=== PATIENT | male | born 1945 | race Hispanic/Latino ===

== ENCOUNTER → 2020-06-22 | Outpatient (CLI) | payer MEDICARE, OTHER ==
--- NOTE | 2020-06-22 10:10 | REP ---
INDICATION: RT LEG PAIN SWELLING ? DVT. COMPARISON: None. TECHNIQUE: Right lower extremity duplex venous scanning. FINDINGS: The deep veins are anechoic and fully compressible from the groin to the popliteal fossa in the right lower extremity. Color flow imaging is homogeneous. Spectral Doppler interrogation demonstrates intact respiratory variation in flow and normal manual augmentation of flow. There is no evidence of deep vein thrombosis. IMPRESSION: Negative right lower extremity duplex venous ultrasound. No evidence of deep vein thrombosis. <Electronically signed by Agustin Friedman > 06/22/20 1001
== END ==
LOC: M RAD 09:31
PROVIDERS: ATTEND Physical Medicine & Rehabilitation
DX: M79.604 Pain in right leg (principal)

== ENCOUNTER → 2020-06-25 | Outpatient (CLI) | payer MEDICARE, OTHER ==
[2020-06-25 09:47] LABS: PLATELET COUNT, AUTOMATED 195 10^3/uL (150-450)
[2020-06-25 09:58] LABS: INR 0.99; PROTHROMBIN TIME 13.3 SECONDS (12.5-14.3)
[2020-06-25 09:59] LABS: PARTIAL THROMBOPLASTIN TIME 28.1 SECONDS (24.2-38.5)
[2020-06-25 10:03] LABS: COLLAGEN EPINEPHRINE 143 SECONDS (74-162)
== END ==
LOC: M LAB 09:15
PROVIDERS: ATTEND Physical Medicine & Rehabilitation
DX: M48.061 Spinal stenosis, lumbar region without neurogenic claudication (principal)

== ENCOUNTER → 2020-08-03 | Outpatient (CLI) | payer MEDICARE, OTHER ==
--- NOTE | 2020-08-03 15:51 | REP ---
INDICATION: PVD COMPARISON: None. TECHNIQUE: Real time cruz scale and color Doppler evaluation of the bilateral lower extremity arterial vasculature using linear high frequency transducer. FINDINGS: Cruz scale and color images demonstrate mild to moderate amounts of partially calcified atheromatous plaquing with areas of minimal narrowing noted bilaterally with primarily biphasic arterial wave patterns. Right lower extremity demonstrates 1.7:1 stenosis at the tibioperoneal trunk and increased velocity through the distal posterior tibial artery without focal area of stenosis identified. Left lower extremity demonstrates 2.3:1 stenosis at the level of the proximal posterior tibial artery. PEAK SYSTOLIC VELOCITIES (CM/SEC) Common femoral artery: Right 96.1; Left 117.0 Profunda femoris: Right 101.9; Left 103.0 SFA (proximal): Right 104.0; Left 107.0 SFA (mid): Right 127.0; Left 118.0 SFA (distal): Right 103.0; Left 120.0 Popliteal artery: Right 99.6; Left 114.0 JANE (prox.): Right 133.0; Left 93.2 Tibioperoneal trunk: Right 86.9/149; Left 66.7 [employer] HE[employer]GER (prox.): Right 42.3; Left 157.0 PL[employer] HE[employer] MANAGER (distal): Right 80.0; Left 55.3 JANE (distal): Right 118.0; Left 77.1 IMPRESSION: Atheromatous changes noted bilaterally including mild areas of stenosis in the right tibioperoneal trunk and left proximal posterior tibial artery. <Electronically signed by Raul Geller > 08/03/20 [id number]
== END ==
LOC: M RAD 12:55
PROVIDERS: ATTEND Podiatrist Foot & Ankle Surgery
DX: I73.9 Peripheral vascular disease, unspecified (principal)

== ENCOUNTER → 2020-11-01 | Outpatient (REF) | payer MEDICARE, OTHER ==
[2020-11-01 13:40] LABS: APPEARANCE, URINE CLEAR (CLEAR); BACTERIA, URINE AUTO NEGATIVE (NEGATIVE); BILIRUBIN, URINE AUTO NEGATIVE (NEGATIVE); BLOOD, URINE BLOOD NEGATIVE (NEGATIVE); CALCIUM OXALATE CRYSTALS SMALL; COLOR, URINE YELLOW (YELLOW); GLUCOSE, URINE (UA) AUTO NEGATIVE (NEGATIVE); KETONE, URINE AUTO NEGATIVE (NEGATIVE); LEUKOCYTE ESTERASE, URINE AUTO NEGATIVE (NEGATIVE); MUCUS, URINE SMALL (NEGATIVE); NITRITE, URINE AUTO NEGATIVE (NEGATIVE); PROTEIN, URINE AUTO 1+ mg/dL (NEGATIVE); RBC, URINE AUTO 1 /HPF (0-3); SPECIFIC GRAVITY URINE AUTO 1.016 (1.002-1.035); SQUAMOUS EPITHELIAL CELL UR AU 0 /HPF (0-6); WBC, URINE AUTO 1 /HPF (0-3)
== END ==
LOC: M SMT 13:15
PROVIDERS: ATTEND Nurse Practitioner Family
DX: R35.1 Nocturia (principal)
CPT/HCPCS: 51798; 81001; 87086; G0463

== ENCOUNTER → 2020-12-21 | Outpatient (CLI) | payer MEDICARE, OTHER ==
--- NOTE | 2020-12-23 11:46 | ECHO ---
ECHOCARDIOGRAM DATE OF PROCEDURE: 12/21/2020 Age: 75 Gender: Male Height: 68 inches Weight: 180 pounds Body surface area: 1.95 m2 REFERRING PHYSICIAN: Robyn Alonzo D.O. INDICATION: Edema. MEASUREMENTS: 2D Measurements: RV - 3.6 cm LV - 4.8 cm Septum 1.1 cm Posterior wall 1.1 cm Aortic root 3.3 cm LA - 4.0 cm LVEF 65% Doppler Measurements: AV - 1.6 m/sec LVOT - 0.97 m/sec LVOT diameter 2.0 cm MV - E 94, A 85, EA ratio 1.1 Early mitral deceleration time 230 msec E prime medial 9.3 A prime medial 14.8 E prime lateral 11 PV - 1.18 m/sec Pulmonary artery acceleration time 106 msec PASP 34 mmHg IVC - 1.6 cm COMMENTS: Normal sinus rhythm without intraventricular conduction disturbance. 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 M-mode and 2-dimensional echocardiography was performed with pulse, continuous wave, color flow and tissue Doppler studies. Normal left ventricular size, wall thickness and wall motion. Left atrial size upper limits of normal, but currently normal Doppler assessment of left ventricular (LV) diastolic function and estimated mean left atrial pressure. Normal right heart chamber sizes and wall motion with single Doppler sign of, perhaps, mild pulmonary hypertension. Normal inferior vena cava (IVC) size and collapse against an elevated central venous pressure. Normal aortic dimensions. Three equal size aortic cusps of normal thickness and separation. No functional abnormality. Normal appearing mitral valvular apparatus and leaflet excursion with no posterior systolic buckling and only trace mitral insufficiency. Normal appearing tricuspid valve with no more than trace insufficiency. No apparent intraventricular cardiac mass or pericardial effusion.
== END ==
LOC: M CARPUL 07:30
PROVIDERS: ATTEND Student in an Organized Health Care Education/Training Program
DX: R60.9 Edema, unspecified (principal)

== ENCOUNTER → 2020-12-27 | Outpatient (CLI) | payer MEDICARE, OTHER ==
--- NOTE | 2020-12-28 16:50 | REPVR ---
PROCEDURE INFORMATION: Exam: MR Lumbar Spine Without Contrast Exam date and time: 12/27/2020 1:43 PM Age: 75 years old Clinical indication: Low back pain; Additional info: Lbp ? stenosis vs hnp TECHNIQUE: Imaging protocol: Multiplanar magnetic resonance images of the lumbar spine without intravenous contrast. COMPARISON: No relevant prior studies available. FINDINGS: Vertebrae: A mild levoscoliotic curvature is partially visualized on the briar cutter sequence. Alignment is otherwise maintained. Vertebral body heights are intact. No pars defect is identified. Spinal cord: The conus is unremarkable in appearance, with its tip at the T12 level. Multilevel findings: There are varying degrees of disc desiccation indicating intervertebral disc degeneration. There also variable degenerative endplate changes. A 1.3 cm hemangioma is present in the L3 vertebral body. L1-L2: Very small bulge leading to very mild bilateral neural foraminal narrowing without significant spinal stenosis. L2-L3: Disc osteophyte complex combining with facet arthrosis to lead to moderate bilateral neural foraminal narrowing with mild bilateral lateral recess narrowing, without significant central canal stenosis. L3-L4: Disc osteophyte complex combining with facet arthrosis and ligamentum flavum hypertrophy to lead to severe right and moderate to severe left neural foraminal narrowing with severe bilateral lateral recess narrowing and moderate to severe central canal stenosis. L4-L5: Disc osteophyte complex combining with facet arthrosis and ligamentum flavum hypertrophy to lead to moderate to severe bilateral neural foraminal narrowing with severe narrowing of the bilateral lateral recesses and mild to moderate central canal stenosis. L5-S1: Disc osteophyte complex combining with facet arthrosis to lead to mild bilateral neural foraminal narrowing without significant spinal stenosis. Soft tissues: Unremarkable. 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 COMMENTS: If surgery is considered, recommend level confirmation. Electronically signed by: Greg Lee On 12/28/2020 16:50:11 PM
== END ==
LOC: M PLAIMG 12:59
PROVIDERS: ATTEND Physician Assistant
DX: M54.5 Low back pain (principal)

== ENCOUNTER 2021-08-16 09:57 | Emergency (ER) | payer MEDICARE, OTHER ==
[~2021-08-16] VITALS: Ht 170.2 cm; Wt 75.8 kg
[2021-08-16] MEDS ORDERED: NS 500 ML IV ONE (10:40)
[2021-08-16] MEDS ORDERED: ONDANSETRON 4MG/2ML VIAL IV ONE (10:40)
[2021-08-16 11:02] LABS: BASO % 0.2 % (0.0-1.0); EOS % 0.1 % (0.0-3.0); HEMATOCRIT 44.7 % (42.0-52.0); HEMOGLOBIN 15.8 g/dl (13.5-17.5); LYMPH # 1.7 10^3/uL (1.5-5.0); LYMPH % 17.1 % (24.0-44.0); MEAN CORPUSCULAR HEMOGLOBIN 31.2 pg (27.0-33.0); MEAN CORPUSCULAR HGB CONC 35.3 g/dl (32.0-36.5); MEAN CORPUSCULAR VOLUME 88.2 fl (80.0-96.0); MONO # 0.7 10^3/uL (0.0-0.8); MONO % 6.5 % (2.0-8.0); NEUTROPHILS # 7.6 10^3/uL (1.5-8.5); NEUTROPHILS % 75.7 % (36.0-66.0); PLATELET COUNT, AUTOMATED 218 10^3/uL (150-450); RED BLOOD COUNT 5.07 10^6/uL (4.30-6.10); WHITE BLOOD COUNT 10.1 10^3/uL (4.0-10.0)
[2021-08-16 11:09] LABS: ALBUMIN 4.3 GM/DL (3.2-5.2); BILIRUBIN,DIRECT 0.3 MG/DL (0.0-0.2); BILIRUBIN,TOTAL 1.2 MG/DL (0.2-1.0); CALCIUM LEVEL 9.3 MG/DL (8.8-10.2); CREATININE FOR GFR 1.8 MG/DL (0.70-1.30); MB/CK RELATIVE INDEX 1.38 (< OR =4); POTASSIUM SERUM 3.5 MEQ/L (3.5-5.1); TOTAL PROTEIN 8.6 GM/DL (6.4-8.2)
[2021-08-16] MEDS ORDERED: ISOVUE-370 76% 100ML VIAL As Ordered ONE (11:17)
[2021-08-16] MEDS ORDERED: NS 1,770 ML in IV 1 EA IV ONE (11:50)
[2021-08-16] MEDS ORDERED: cefTRIAXone SOD 2 GM in D5W MINI-BAG PLUS 50 ML IV ONE (11:50)
[2021-08-16 13:02] LABS: CK-MB VALUE MASS 1.3 NG/ML (<3.6); MB/CK RELATIVE INDEX 0.91 (< OR =4)
[2021-08-16 16:03] LABS: CALCIUM LEVEL 7.9 MG/DL (8.8-10.2); CREATININE FOR GFR 1.37 MG/DL (0.70-1.30); GLOMERULAR FILTRATION RATE 53.5 (>42)
[2021-08-16 16:15] VITALS: BP 183/89
[2021-08-16] MEDS ORDERED: ONDA4TAB6 PO (16:17)
== END 2021-08-16 17:05 | disposition home or self-care (01) ==
LOC: M ED 09:57
DX: K52.9 Noninfective gastroenteritis and colitis, unspecified (principal); R91.1 Solitary pulmonary nodule; I25.10 Atherosclerotic heart disease of native coronary artery without angina pectoris; I10 Essential (primary) hypertension; G47.33 Obstructive sleep apnea (adult) (pediatric); N28.1 Cyst of kidney, acquired
CPT/HCPCS: 71275; 74177; 80048; 80076; 81001; 82550; 82553; 83605; 83690; 84484; 85025; 87040; 87798; 93005; 93041; 96361; 96365; 96366; 96375; 99285; J0696; J2405; Q9967

== ENCOUNTER → 2021-08-28 | Outpatient (REF) | payer MEDICARE, OTHER ==
[~2021-08-28] MED LIST: ONDA4TAB6 PO
== END ==
LOC: M LAB REF 10:55
PROVIDERS: ATTEND Internal Medicine
DX: A08.0 Rotaviral enteritis (principal)

== ENCOUNTER 2021-09-30 13:19 | Emergency (ER) | payer MEDICARE, OTHER ==
[~2021-09-30] VITALS: Ht 170.2 cm; Wt 82.6 kg
[2021-09-30] MEDS ORDERED: ISOVUE-370 76% 100ML VIAL As Ordered ONE (17:43)
[2021-09-30 17:53] LABS: BASO % 0.3 % (0.0-1.0); EOS # 0.2 10^3/uL (0.0-0.5); EOS % 2.3 % (0.0-3.0); HEMATOCRIT 37.2 % (42.0-52.0); HEMOGLOBIN 12.3 g/dl (13.5-17.5); LYMPH # 4.7 10^3/uL (1.5-5.0); LYMPH % 49.8 % (24.0-44.0); MEAN CORPUSCULAR HEMOGLOBIN 31.1 pg (27.0-33.0); MEAN CORPUSCULAR HGB CONC 33.1 g/dl (32.0-36.5); MEAN CORPUSCULAR VOLUME 94.2 fl (80.0-96.0); MONO # 0.7 10^3/uL (0.0-0.8); MONO % 7.8 % (2.0-8.0); NEUTROPHILS # 3.8 10^3/uL (1.5-8.5); NEUTROPHILS % 39.6 % (36.0-66.0); PLATELET COUNT, AUTOMATED 174 10^3/uL (150-450); RED BLOOD COUNT 3.95 10^6/uL (4.30-6.10); WHITE BLOOD COUNT 9.5 10^3/uL (4.0-10.0)
[2021-09-30 18:13] LABS: ALBUMIN 3.6 GM/DL (3.2-5.2); ALT/SGPT 26 U/L (12-78); BILIRUBIN,DIRECT 0.2 MG/DL (0.0-0.2); BILIRUBIN,TOTAL 0.6 MG/DL (0.2-1.0); C REACTIVE PROTEIN QUANTITATIV < 0.30 MG/DL (0.00-0.30); LIPASE 103 U/L (73-393); TOTAL PROTEIN 7.3 GM/DL (6.4-8.2)
[2021-09-30 18:38] LABS: ERYTHROCYTE SEDIMENTATION RATE 35 mm/hr (0-20)
[2021-09-30 19:56] VITALS: BP 192/85
== END 2021-09-30 19:57 | disposition home or self-care (01) ==
LOC: M ED 13:19
DX: K21.9 Gastro-esophageal reflux disease without esophagitis (principal); R09.89 Other specified symptoms and signs involving the circulatory and respiratory systems; M43.02 Spondylolysis, cervical region; G89.29 Other chronic pain; M54.9 Dorsalgia, unspecified; I10 Essential (primary) hypertension; E78.5 Hyperlipidemia, unspecified; Z86.73 Personal history of transient ischemic attack (TIA), and cerebral infarction without residual deficits; Z79.899 Other long term (current) drug therapy
CPT/HCPCS: 36415; 70360; 70491; 80047; 80076; 83690; 85025; 85652; 86140; 99283; Q9967

== ENCOUNTER → 2021-10-04 | Outpatient (CLI) | payer MEDICARE, OTHER ==
[~2021-10-04] MED LIST changes: +ASPI81CH33 PO; +CYCL-707 PO; +LOSA25TA13 PO; +NORV5TAB PO; +TRAM50TA2 PO; +TRAZ-252 PO
== END ==
LOC: M PLAIMG 12:10
PROVIDERS: ATTEND Family Medicine
DX: M54.16 Radiculopathy, lumbar region (principal)

== ENCOUNTER 2021-10-05 15:39 | Emergency (ER) | payer MEDICARE, OTHER ==
[~2021-10-05] VITALS: Ht 170.2 cm; Wt 75.0 kg
[~2021-10-05 15:39] MED LIST changes: -ASPI81CH33 PO; -CYCL-707 PO; -LOSA25TA13 PO; -NORV5TAB PO; -TRAM50TA2 PO; -TRAZ-252 PO
[2021-10-05] MEDS ORDERED: ASPI81CH33 PO (15:47)
[2021-10-05] MEDS ORDERED: TRAM50TA2 PO (15:47)
[2021-10-05] MEDS ORDERED: TRAZ-252 PO (15:47)
[2021-10-05] MEDS ORDERED: NORV5TAB PO (15:47)
[2021-10-05] MEDS ORDERED: LOSA25TA13 PO (15:47)
[2021-10-05] MEDS ORDERED: MORPHINE 2 MG/ML 1ML VIAL IV ONE ×2 (17:05→21:20)
[2021-10-05] MEDS ORDERED: ONDANSETRON 4MG/2ML VIAL IV ONE (17:05)
[2021-10-05 17:46] LABS: HEMATOCRIT 37.6 % (42.0-52.0); HEMOGLOBIN 12.8 g/dl (13.5-17.5); MEAN CORPUSCULAR HEMOGLOBIN 31.6 pg (27.0-33.0); MEAN CORPUSCULAR VOLUME 92.8 fl (80.0-96.0); PLATELET COUNT, AUTOMATED 198 10^3/uL (150-450); RED BLOOD COUNT 4.05 10^6/uL (4.30-6.10); WHITE BLOOD COUNT 9.3 10^3/uL (4.0-10.0)
[2021-10-05 17:58] LABS: CK-MB VALUE MASS 3.4 NG/ML (<3.6); MB/CK RELATIVE INDEX 1.99 (< OR =4)
[2021-10-05 18:08] LABS: ALBUMIN 3.4 GM/DL (3.2-5.2); BILIRUBIN,DIRECT 0.2 MG/DL (0.0-0.2); BILIRUBIN,TOTAL 0.5 MG/DL (0.2-1.0); C REACTIVE PROTEIN QUANTITATIV 1.16 MG/DL (0.00-0.30); ERYTHROCYTE SEDIMENTATION RATE 66 mm/hr (0-20); FREE T4 0.73 NG/DL (0.76-1.46); THYROID STIMULATING HORMONE 10.6 uIU/ML (0.358-3.740); TOTAL PROTEIN 7.4 GM/DL (6.4-8.2)
[2021-10-05 18:22] LABS: ATYPICAL LYMPH 31 % (0-5); EOSINOPHILS 6 % (0-3); LYMPHOCYTES 24 % (16-44); MONOCYTES 3 % (0-5); NEUTROPHILS 36 % (28-66); PLATELET ESTIMATE NORMAL (NORMAL)
[2021-10-05] MEDS ORDERED: PROHANCE 279.3MG/ML 15ML VIAL As Ordered ONE (20:33)
[2021-10-05] MEDS ORDERED: MORPHINE 10 MG/ML 1ML VIAL As Ordered ONE (21:19)
[2021-10-05] MEDS ORDERED: diazePAM 10MG/2ML SYRINGE (J3360 PER 5MG) IV ONE (21:20)
[2021-10-05] MEDS ORDERED: NORCO 5/325MG TABLET (BULK FOR ED) PO ONE (23:25)
[2021-10-05] MEDS ORDERED: CYCLOBENZAPRINE 10MG TABLET XX ONE (23:25)
[2021-10-05] MEDS ORDERED: CYCL-707 PO (23:36)
[2021-10-05 23:47] VITALS: BP 150/74
== END 2021-10-05 23:50 | disposition home or self-care (01) ==
LOC: M ED 15:39
DX: M54.31 Sciatica, right side (principal); M51.36 Other intervertebral disc degeneration, lumbar region; M51.24 Other intervertebral disc displacement, thoracic region; M48.062 Spinal stenosis, lumbar region with neurogenic claudication; M48.04 Spinal stenosis, thoracic region; R10.9 Unspecified abdominal pain; R00.1 Bradycardia, unspecified; M41.86 Other forms of scoliosis, lumbar region; Z86.73 Personal history of transient ischemic attack (TIA), and cerebral infarction without residual deficits; Z79.82 Long term (current) use of aspirin; Z79.899 Other long term (current) drug therapy
CPT/HCPCS: 71046; 72157; 72158; 80047; 80076; 81001; 82150; 82550; 82553; 83690; 84439; 84443; 84484; 85025; 85652; 86140; 93005; 93041; 96374; 96375; 96376; 99285; A9576; J2270; J2405; J3360